=== PATIENT | female | born 1960 | race Caucasian/White ===

== ENCOUNTER 2019-02-13 08:22 | Outpatient (CLI) | payer MEDICARE ==
--- NOTE | 2019-02-13 09:56 | RAD ---
XR Shoulder Rt 2 View History: Shoulder pain M 25.511 Comparison: None. Findings: No acute fracture or malalignment. There is narrowing of the subacromial space from what ap pears to be undersurface keel osteophyte. Ribs are intact. Impression: Type III acromion narrowing the subacromial space versus less likely acromial ossicle.
== END 2019-02-13 08:23 | disposition home or self-care (01) ==
LOC: BICRAD 08:22
PROVIDERS: ATTEND Family Medicine
DX: M25.511 Pain in right shoulder (principal)

== ENCOUNTER 2019-03-16 09:07 | Outpatient (CLI) | payer MEDICARE ==
[~2019-03-16 09:07] MED LIST: EPINEPHrine 1 MG/ML AMP ONE; Iopamidol 300 61% 100 ML VIAL FS ONE; Lidocaine 1% PF 10 ML AMP ONE
--- NOTE | 2019-03-16 10:57 | RAD ---
RIGHT SHOULDER ARTHROGRAM: HISTORY: Evaluate for right rotator cuff tear. Pain. EXPOSURE: 0.7 minutes, 319.9 mGy*^cm2. FINDINGS: Initial 2-view insurance consultant radiograph of the right shoulder demonstrates mild degenerative change. The mansoor ral head is somewhat inferiorly subluxed with respect to the glenoid. Successful right shoulder arthrogram. A total of 10 cc of the contrast admixture was administered to the joint space. No immediate or postprocedural complications. TECHNIQUE: Consent was obtained to perform a right shoulder arthrogram. Right shoulder was prepped and draped in a sterile fashion. 1% lidocaine, buffered with sodium bicarbonate was used for local anesthesia. Under fluoroscopic guidance, 22-gauge spinal needle was advanced into the right shoulder joint space. A total of 10 cc of the contrast admixture was administered. Patient tolerated the procedure well. No immediate or post procedure complications. IMPRESSION: Successful right shoulder arthrogram. Transcribed Date/Time: 03/16/2019 11:07 AM
--- NOTE | 2019-03-16 13:19 | CT ---
POST ARTHROGRAM CT OF RIGHT SHOULDER PERFORMED WITH CONTRAST: Date: 03/16/19 HISTORY: Right shoulder pain. FINDINGS: There is moderate arthrosis of the AC joint. The supra and infraspinatus tendons appear intact without evidence of tear. Subscapularis muscle and tendon appear intact. Biceps tendon is in normal position within the bicipital groove. There are arthritic changes of the glenohumeral joint space. Osteophytic changes along the inferior a rticular surface of the humeral head. IMPRESSION: 1. Arthritic changes of glenohumeral joint space. 2. No evidence of rotator cuff tear. POS: [facility]
== END 2019-03-16 09:08 | disposition home or self-care (01) ==
LOC: RAD 09:07
PROVIDERS: ATTEND Orthopaedic Surgery
DX: M25.511 Pain in right shoulder (principal); M19.011 Primary osteoarthritis, right shoulder
CPT/HCPCS: 23350; J0171; J2001; Q9967